=== PATIENT | female | born 1975 | race Caucasian/White ===

== ENCOUNTER → 2023-12-02 14:54 | Outpatient (BNVA) | payer OTHER, SELFPAY | PROVIDERS: Visit Provider Surgery ==

== ENCOUNTER 2024-02-03 08:08 | Outpatient (AMB) | payer OTHER, SELFPAY ==
--- NOTE | 2024-02-03 11:56 | MHC.OFFVISWM ---
VS Expanded 02/03/24 12:09 Height 5 ft 6 in Weight 269 lb 8 oz BMI 43.5 Body Fat % 48.2 Body Fat Mass 129.8 Fat Free Mass 139.8 Visceral Fat Rating 15 Body Water % 37 Body Water Mass 99.6 Basal Metabolic Rate/Score 1,988 Intake Visit Reasons: TV Revision SWL BMI 43.5 Allergies No Known Allergies Allergy (Verified 02/03/24 11:56) Medication List - Last Reconciled 02/03/24 by Otis Alonzo MD amlodipine 10 mg PO DAILY APAP Machine/Device As directed Ca carb-D3-mag [id number] 300 mg-20 mcg- 25 mg-0.5 mg (Caltrate-D3 Plus Minerals) 1 tab PO DAILY ferrous sulfate (FeroSul) mg PO losartan 50 mg PO DAILY phentermine 30 mg PO DAILY HPI HPI TV Revision SWL BMI 43.5: Details: Start time: 11.40am, End time: 12.32pm ?I spent 47 minutes speaking with the patient on the phone plus an additional 5 minutes reviewing and updating records for a total of 52 minutes HPI Comments Details: Previous weight loss efforts: lap gastric bypass. Patient states that nobody told her to follow in that practice after surgery Wakes up: 6.30am, Sleeps: 11pm Breakfast: 9.30am (boiled eggs) Lunch: 12pm (sandwich with chicken) Dinner: 6pm (chicken) Snacks: 8am (cheese), 4pm (chips) Exercise: none Fluids: Coffee: none, tea: none, soda: Mountain Dew daily, juice: none, ETOH: none PFSH Medical History (Updated 02/03/24 @ 12:03 by Otis Alonzo MD) Obstructive sleep apnea on CPAP Hypertension Morbid obesity Surgical History (Updated 02/03/24 @ 12:03 by Otis Alonzo MD) History of hysterectomy History of [place]-en-Y gastric bypass Hx laparoscopic cholecystectomy Hx of colonoscopy Family History (Updated 12/03/23 @ 08:03 by Danette Acuna CMA) Maternal Aunt Ovarian cancer Mother Uterine cancer Social History (Updated 12/03/23 @ 07:39 by Danette Acuna CMA) Alcohol intake: never Patient Tobacco Use Status: Never used Tobacco Telehealth Telehealth Telehealth Platform: Telephone Location of provider rendering services: practice address Location of patient: address on file Patient Identification confirmed using: Name, : Yes Telehealth method: voice only Patient verbally consented to treatment: Yes Patient verbally consented to billing insurance company: Yes Patient informed of any privacy concerns related to visit: Yes Minutes spent on Phone/Video with Pt.: 52 Assessment & Plan Assessment & Plan (1) Morbid obesity: Code(s): E66.01 - Morbid (severe) obesity due to excess calories Category: Medical Plan: 1.? Plan for lap sleeve gastrectomy of the gastric pouch. If diaphragmatic or ventral hernias are present at time of surgery, these will be repaired laparoscopically as well. Risks and complications were discussed in detail including possible conversion to an open procedure, anastomotic leak, bleeding requiring transfusion, small bowel obstruction, , DVT and pulmonary embolism, cardiac, or pulmonary complications, as termite technician complications such as anastomotic ulcer, insufficient weight loss and vitamin deficiencies. I emphasized the importance of close follow-up, adherence to instructions and good communication. 2. Nutritional counseling. Start with 2 CELEBRATE REBUILD protein (buy at [facility] [employer]) shakes (ONE scoop EACH in 8oz low fat unsweetened almond milk each) at 7am-9am and 10am-12pm, 2 protein bars (CELEBRATE protein bars, buy at [facility] [employer]) at 1pm-3pm and 4pm-6pm, dinner at 7pm (5 forks of protein and 5 forks of salad/vegetables) AND another protein bar after dinner at 9pm-11pm. So you do 2 protein shakes, 3 protein bars and one meal per day. Meal to include lean meat (beef, fish, pork, turkey, chicken), or mozamb[place] yogurt, or egg whites, or beans with a salad with olive oil and fruits (berries, pears, apples, kiwi). Avoid salt, breads, potatoes, rice, pasta, desserts. 3. Each shake would be drunk slowly, like coffee in a period of 2 hours. 4. Cut each bar in 4 pieces and eat each piece in 30min ?to make each bar last 2 hours. 5. I emphasized the importance of measuring accurately the food portion and measure it when serving the food in plate 6. The meal portions include 5 full-size forks of meat and 5 full-size forks of salad. You always eat the meat portion but you can replace up to 5 forks for salad/vegetables with rice, potatoes or pasta, or a fruit ?if you like. The less you do it the better weight loss will be. 7. One full-size fork is what it can be scooped on the fork without falling aside and not what can be bit with the fork. Use regular forks like those you find in a typical restaurant. 8.? Please send me weight measurements as soon as possible and then once a week. Always include your diet and exercise plan. 9. Start walking outside daily, tracking calories with a goal of 300 calories per day, daily. Goal is to burn 2000 calories per week on exercise, which means either 300 calories daily, or 400 calories 5 days per week, or 500 calories 4 days per week, or 650 calories 3 days per week. 10. The best choice would be to purchase a stationary bike, elliptical or treadmill at home that can track calories. Let me know if you do so I can give you an exercise plan. 11.?Goal is to lose at least 1.5-2lbs per week 12. Goal to lose 10% of your weight before surgery, which is about 27lbs. Ultimate weight goal: 242lbs before surgery 13. Please follow the diet plan exactly without any change. If you don't like something about the plan or you feel hungry you need to communicate with me so I can help you revise the plan. You should not change the plan yourself. 14. To be scheduled for EGD to assess the anatomy of the gastric bypass. The possibility of biopsies was discussed. Patient needs to avoid use of NSAIDs and aspirin for 1 week prior to EGD. Risks of perforation and bleeding was discussed with the patient. This will be an outpatient procedure with IV sedation.
[2024-02-03 12:09] VITALS: BMI 43.5
== END 2024-02-03 12:32 | disposition home or self-care (01) ==
LOC: HO.HBS 08:08
PROVIDERS: Visit Provider Surgery
DX: E66.01 Morbid (severe) obesity due to excess calories (principal); Z68.41 Body mass index [BMI] 40.0-44.9, adult
CPT/HCPCS: 99204

== ENCOUNTER → 2024-02-03 08:08 | Outpatient (BNVA) | payer OTHER, SELFPAY | PROVIDERS: Visit Provider Surgery ==